=== PATIENT | male | born 1955 | race African-American/Black ===

== ENCOUNTER 2017-04-19 14:34 | Emergency (ER) | payer MEDICAID, OTHER ==
[~2017-04-19] VITALS: Ht 182.9 cm; Wt 90.0 kg
[~2017-04-19 14:34] MED LIST: ACET-3161 PO; AMLO5TAB88 PO; ASPI-1159 PO; ISOS20TA57 PO; METO-411 PO; MUC20 PO; RANI150T7 PO; RANO500T3 PO; SIMV10TA6 PO; [UNRECOGNIZED DRUG - CODE] PO
[2017-04-19 15:08] VITALS: BP 170/80
[2017-04-19] MEDS ORDERED: ACETAMINOPHEN 500MG TABLET PO ONE (18:08)
== END 2017-04-19 19:16 | disposition home or self-care (01) ==
LOC: ER 14:49
DX: S43.401A Unspecified sprain of right shoulder joint, initial encounter (principal); S13.9XXA Sprain of joints and ligaments of unspecified parts of neck, initial encounter; Y04.8XXA Assault by other bodily force, initial encounter; Y93.89 Activity, other specified; Y92.9 Unspecified place or not applicable
CPT/HCPCS: 72040; 73030; 99284